=== PATIENT | female | born 2000 | race African-American/Black ===

== ENCOUNTER 2019-09-04 20:45 | Emergency (ER) | payer OTHER ==
[~2019-09-04] VITALS: Ht 165.1 cm; Wt 56.7 kg
[2019-09-04 21:01] LABS: URINE BILIRUBIN NEGATIVE (Negative); URINE BLOOD NEGATIVE (Negative); URINE CLARITY CLEAR; URINE COLOR YELLOW; URINE GLUCOSE-RANDOM* NEGATIVE (Negative); URINE KETONES NEGATIVE (Negative); URINE LEUKOCYTES-REFLEX NEGATIVE (Negative); URINE NITRITE-REFLEX NEGATIVE (Negative); URINE PROTEIN (DIPSTICK) NEGATIVE (Negative)
[2019-09-04] MEDS ORDERED: BIRTH CONTROL PO (21:02)
[2019-09-04] MEDS ORDERED: NAPROSYN500 MG PO (23:04)
[2019-09-04] MEDS ORDERED: BENTYL 20 MG TA20 M1 PO (23:04)
[2019-09-04 23:18] VITALS: BP 111/60
== END 2019-09-04 23:26 | disposition home or self-care (01) ==
LOC: ER 20:45
PROVIDERS: Emergency Medicine
DX: R10.9 Unspecified abdominal pain (principal); Z79.899 Other long term (current) drug therapy

== ENCOUNTER 2019-11-12 13:19 | Emergency (ER) | payer BC, OTHER ==
[~2019-11-12] VITALS: Ht 167.6 cm; Wt 56.7 kg
[~2019-11-12 13:19] MED LIST: BENTYL 20 MG TA20 M1 PO; BIRTH CONTROL PO; NAPROSYN500 MG PO
[2019-11-12] MEDS ORDERED: CYCLOBENZAPRINE5 MG PO (14:57)
[2019-11-12 15:30] VITALS: BP 132/78
== END 2019-11-12 15:30 | disposition home or self-care (01) ==
LOC: ER 13:19
DX: S16.1XXA Strain of muscle, fascia and tendon at neck level, initial encounter (principal); M54.6 Pain in thoracic spine; R51 Headache; R60.0 Localized edema; V89.2XXA Person injured in unspecified motor-vehicle accident, traffic, initial encounter; Y93.I9 Activity, other involving external motion; Y92.488 Other paved roadways as the place of occurrence of the external cause; Y99.8 Other external cause status